=== PATIENT | female | born 1930 | race Caucasian/White ===

== ENCOUNTER 2018-06-26 00:54 | Emergency (ER) | payer OTHER ==
[~2018-06-26] VITALS: Ht 160 cm; Wt 90.7 kg
--- NOTE | ~2018-06-26 | EKG ---
[place] [address] [facility] [place] [address] ELECTROCARDIOGRAM REPORT Name: MARLON BETANCUR [facility] [id number] Admission: 06/26/18 Attend Phys: Discharge: 06/26/18 Date of : 34 Report #: [id number] THIS REPORT FOR: //name// [facility] ED Test Date: 2018-06-26 Test Time: 01:05:49 Pat Name: MARLON BETANCUR Department: Room: Gender: F Winding Machine Operator: EVANGELINA : 1930 Requested By: Zbigniew Alanis Order Number: [id number] MD: Jeremiah Rudolph Measurements Intervals [place] Rate: 76 P: NE: QRS: 37 QRSD: 114 T: 4 QT: 404 QTc: 455 Interpretive Statements Atrial fibrillation Incomplete right bundle branch block Low voltage, precordial leads Compared to ECG 11/23/2014 03:03:51 Incomplete right bundle-branch block now present Electronically Signed On 06-26-2018 10:23:46 CORRECTION OFFICER REFORMATORY by Jeremiah Rudolph [email or web address] <ELECTRONICALLY SIGNED> By: Jeremiah Rudolph MD 06/26/18 1023 0105 0105 Jeremiah Rudolph MD /JUAN
[~2018-06-26 00:54] MED LIST: ALLEGRA60 MG PO; ASPIRIN EC81 M1; ASPIRIN81 M2 PO; CALTRATE 600 +1 EACH PO; CARDIZEM CD240 MG PO; CENTRUM SILVER1 EAC4 PO; COUMADIN 5 MG TA5 M1 PO; FISH OIL 1,0001 EAC5; FISH OIL 1,0001 EAC5 PO; FLEX A MIN; GABAPENTIN 100100 MG PO; GLUCOSAMINE &1 EACH PO; MULTIVITAMINS1 EAC7; PRILOSEC 20 MG20 MG PO; TENORMIN25 MG PO; ULTRAM 50MG TAB50 MG PO; VITAMIN D-32000 UNIT PO; VITAMIN D400 UNI1; ZOFRAN4 MG PO; ZYRTEC 10 MG TA10 M1; [UNRECOGNIZED DRUG - OTHER]
[2018-06-26 01:45] LABS: HEMATOCRIT 39.1 % (37.0-47.0); HEMOGLOBIN 13.2 gm/dL (12.0-15.0); MCH 32.1 pg (26.0-34.0); MCHC 33.8 g/dL (28.0-37.0); MCV 94.9 fL (80.0-100.0); PLATELET COUNT 187 thou/uL (150-400); RBC 4.12 mil/uL (4.20-5.00); RDW 13.8 % (10.5-14.5); WBC 9.5 thou/uL (4.0-11.0)
[2018-06-26 01:46] LABS: ABSOLUTE NEUTROPHILS 4.5 thou/uL (1.4-8.2); ATYPICAL LYMPHS 4 %
[2018-06-26 01:49] LABS: ANION GAP 10 mmol/L (7-16); BUN 18 mg/dL (7-18); CALCIUM 9.1 mg/dL (8.5-10.1); CHLORIDE 102 mmol/L (98-107); CO2 25 mmol/L (21-32); CREATININE 0.9 mg/dL (0.6-1.0); GLUCOSE 111 mg/dL (74-106); POTASSIUM 4.3 mmol/L (3.5-5.1); SODIUM 137 mmol/L (136-145)
[2018-06-26] MEDS ORDERED: COUMADIN 2.5MG2.5 M1 PO (01:50)
[2018-06-26] MEDS ORDERED: COUMADIN 5 MG TA5 M1 PO (01:50)
[2018-06-26] MEDS ORDERED: AMLODIPINE BESYL5 M1 PO (01:52)
[2018-06-26] MEDS ORDERED: LISINOPRIL10 MG PO (01:52)
[2018-06-26 01:57] LABS: INR 2.1; PROTIME 21.5 Seconds (9.3-11.4); TROPONIN-I <0.06 ng/mL (<0.06)
[2018-06-26 02:55] VITALS: BP 146/71
== END 2018-06-26 02:58 | disposition home or self-care (01) ==
LOC: ER 00:54
PROVIDERS: Emergency Medicine
DX: R00.2 Palpitations (principal); Z88.8 Allergy status to other drugs, medicaments and biological substances; I48.91 Unspecified atrial fibrillation; Z98.890 Other specified postprocedural states

== ENCOUNTER 2019-05-20 05:47 | Emergency (ER) | payer OTHER ==
[~2019-05-20] VITALS: Ht 160 cm; Wt 90.7 kg
[~2019-05-20 05:47] MED LIST changes: +AMLODIPINE BESYL5 M1 PO; +COUMADIN 2.5MG2.5 M1 PO; +LISINOPRIL10 MG PO
[2019-05-20] MEDS ORDERED: NASAL SPRAY30 ML (06:16)
[2019-05-20] MEDS ORDERED: MOBIC7.5 MG PO (06:16)
[2019-05-20] MEDS ORDERED: LASIX 40 MG TAB40 M2 PO (06:16)
[2019-05-20 07:14] LABS: ABSOLUTE NEUTROPHILS 7.6 thou/uL (1.4-8.2); BASOPHILS 0.8 % (0.0-2.0); EOSINOPHILS 0.6 % (0.0-3.0); HEMATOCRIT 37.2 % (37.0-47.0); HEMOGLOBIN 12.3 gm/dL (12.0-15.0); MCH 31.5 pg (26.0-34.0); MCV 95.6 fL (80.0-100.0); MONOCYTES 9.4 % (1.0-8.0); PLATELET COUNT 226 thou/uL (150-400); POLYS 71.2 % (36.0-66.0); RBC 3.89 mil/uL (4.20-5.00); RDW 14.3 % (10.5-14.5); WBC 10.6 thou/uL (4.0-11.0)
[2019-05-20 07:18] LABS: CALCIUM 9.8 mg/dL (8.5-10.1); CREATININE 0.9 mg/dL (0.6-1.0); POTASSIUM 4.6 mmol/L (3.5-5.1)
[2019-05-20 07:45] VITALS: BP 151/70
[2019-05-20] MEDS ORDERED: TENORMIN50 MG PO (07:46)
--- NOTE | 2019-05-20 11:33 | EKG ---
[address] [place] [address] ELECTROCARDIOGRAM REPORT Name: MARLON BETANCUR Room #: DEP [facility] [id number] Admission: 05/20/19 Attend Phys: Discharge: 05/20/19 Date of : 32 Report #: [id number] THIS REPORT FOR: //name// [facility] ED Test Date: 2019-05-20 Test Time: 05:52:20 Pat Name: MARLON BETANCUR Department: Room: Gender: F Manager Retention: EVANGELINA : 1930 Requested By: Zbigniew Alanis Order Number: [id number] MD: Mike Hui Measurements Intervals [place] Rate: 64 P: [place]: QRS: 18 QRSD: 107 T: -4 QT: 408 QTc: 421 Interpretive Statements Atrial fibrillation Low voltage, precordial leads RSR' in V1 or V2, right VCD or RVH Compared to ECG 06/26/2018 01:05:49 Right ventricular hypertrophy now present RSR' in V1 or V2 now present Incomplete right bundle-branch block no longer present Electronically Signed On 05-20-2019 11:32:50 CDT by Mike Hui [email or web address] <ELECTRONICALLY SIGNED> By: Mike Hui MD 05/20/19 1132 0552 0552 Mike Hui MD /EPI
== END 2019-05-20 08:03 | disposition home or self-care (01) ==
LOC: ER 05:47
PROVIDERS: Emergency Medicine
DX: R00.2 Palpitations (principal); I48.91 Unspecified atrial fibrillation; Z90.89 Acquired absence of other organs; Z98.890 Other specified postprocedural states; Z88.8 Allergy status to other drugs, medicaments and biological substances

== ENCOUNTER 2019-10-26 00:29 | Emergency (ER) | payer OTHER ==
[~2019-10-26] VITALS: Ht 160 cm; Wt 88.5 kg
[~2019-10-26 00:29] MED LIST changes: +LASIX 40 MG TAB40 M2 PO; +MOBIC7.5 MG PO; +NASAL SPRAY30 ML; +TENORMIN50 MG PO
[2019-10-26] MEDS ORDERED: TENORMIN25 MG PO (00:36)
[2019-10-26] MEDS ORDERED: NORVASC 2.5 MG2.5 M1 PO (00:37)
[2019-10-26] MEDS ORDERED: LISINOPRIL10 MG PO (00:38)
[2019-10-26] MEDS ORDERED: POTASSIUM20 PO (00:39)
[2019-10-26 01:50] LABS: ABSOLUTE NEUTROPHILS 5.7 thou/uL (1.4-8.2); BASOPHILS 0.7 % (0.0-2.0); HEMATOCRIT 36.7 % (37.0-47.0); HEMOGLOBIN 11.9 gm/dL (12.0-15.0); LYMPHOCYTES 21.1 % (24.0-44.0); MCH 30.7 pg (26.0-34.0); MCHC 32.5 g/dL (28.0-37.0); MCV 94.6 fL (80.0-100.0); MONOCYTES 11.4 % (1.0-8.0); PLATELET COUNT 207 thou/uL (150-400); POLYS 65.8 % (36.0-66.0); RBC 3.88 mil/uL (4.20-5.00); RDW 14.6 % (10.5-14.5); WBC 8.6 thou/uL (4.0-11.0)
[2019-10-26 01:57] LABS: ANION GAP 10 mmol/L (7-16); BUN 16 mg/dL (7-18); CALCIUM 8.9 mg/dL (8.5-10.1); CHLORIDE 101 mmol/L (98-107); CO2 26 mmol/L (21-32); GLUCOSE 110 mg/dL (74-106); POTASSIUM 3.8 mmol/L (3.5-5.1); SODIUM 137 mmol/L (136-145)
[2019-10-26 02:07] LABS: ALBUMIN 3.5 g/dL (3.4-5.0); MAGNESIUM 1.7 mg/dL (1.8-2.4); SGOT 24 U/L (15-37); SGPT 20 U/L (30-65); TOTAL BILIRUBIN 0.6 mg/dL (<0.1-1.0); TOTAL PROTEIN 7.2 g/dL (6.4-8.2); TROPONIN-I <0.06 ng/mL (<0.06)
[2019-10-26 02:13] LABS: APTT 35.2 Seconds (24.5-32.8); INR 2.1
[2019-10-26 02:14] VITALS: BP 160/82
--- NOTE | 2019-10-26 09:07 | EKG ---
[facility] [place] [address] ELECTROCARDIOGRAM REPORT Name: MARLON BETANCUR Room #: [facility] [id number] Admission: 10/26/19 Attend Phys: Discharge: 10/26/19 Date of : 32 Report #: [id number] THIS REPORT FOR: cc: Soila Gutierrez MD, Stany A. MD Lundgren,Brayden Bloom MD [facility] ~ THIS REPORT FOR: //name// [facility] ED Test Date: 2019-10-26 Test Time: 00:31:35 Pat Name: MARLON BETANCUR Department: Room: Gender: Group Insurance Special Agent: LAURE : 1930 Requested By: Kade Griggs Order Number: [id number] MD: Brayden Fraire Measurements Intervals [place] Rate: 61 P: 164 [place]: 272 QRS: 3 QRSD: 127 T: -13 QT: 426 QTc: 429 Interpretive Statements Atypical atrial flutter with controlled ventricular response Incomplete right bundle branch block Compared to ECG 05/20/2019 05:52:20 no significant change was found Electronically Signed On 10-26-2019 9:06:43 BEHAVIORAL TECHNICIAN by Brayden Fraire [email or web address] <ELECTRONICALLY SIGNED> By: Brayden Fraire MD, [facility] 10/26/19 0906 003 003 Brayden Fraire MD, [facility] /EPI
== END 2019-10-26 02:15 | disposition home or self-care (01) ==
LOC: ER 00:29
PROVIDERS: Emergency Medicine
DX: I49.3 Ventricular premature depolarization (principal); I48.91 Unspecified atrial fibrillation; I10 Essential (primary) hypertension; Z90.49 Acquired absence of other specified parts of digestive tract; Z88.8 Allergy status to other drugs, medicaments and biological substances

== ENCOUNTER → 2019-10-30 | Outpatient (CLI) | payer OTHER ==
[~2019-10-30] MED LIST changes: +NORVASC 2.5 MG2.5 M1 PO; +POTASSIUM20 PO
== END ==
LOC: SJCVC 12:16
DX: I44.0 Atrioventricular block, first degree (principal); I45.10 Unspecified right bundle-branch block; R94.31 Abnormal electrocardiogram [ECG] [EKG]; I48.0 Paroxysmal atrial fibrillation; I10 Essential (primary) hypertension; E78.5 Hyperlipidemia, unspecified; I65.23 Occlusion and stenosis of bilateral carotid arteries; Z79.01 Long term (current) use of anticoagulants; Z79.899 Other long term (current) drug therapy

== ENCOUNTER → 2020-10-11 | Outpatient (CLI) | payer OTHER | LOC: LAB 14:13 | PROVIDERS: ATTEND Internal Medicine Cardiovascular Disease | DX: Z01.812 Encounter for preprocedural laboratory examination (principal); Z20.822 Contact with and (suspected) exposure to COVID-19 ==

== ENCOUNTER → 2020-10-11 | Outpatient (CLI) | payer OTHER ==
[~2020-10-11] MED LIST changes: +OSTERA TABLET1 EAC1 PO; +XARELTO20 MG PO
== END ==
LOC: SJCVC 12:42
PROVIDERS: ATTEND Internal Medicine
DX: R94.31 Abnormal electrocardiogram [ECG] [EKG] (principal); I44.0 Atrioventricular block, first degree; I49.5 Sick sinus syndrome; I48.0 Paroxysmal atrial fibrillation; I48.3 Typical atrial flutter; E78.00 Pure hypercholesterolemia, unspecified; K21.9 Gastro-esophageal reflux disease without esophagitis; M81.0 Age-related osteoporosis without current pathological fracture; I25.10 Atherosclerotic heart disease of native coronary artery without angina pectoris; Z98.890 Other specified postprocedural states; Z88.8 Allergy status to other drugs, medicaments and biological substances; Z79.01 Long term (current) use of anticoagulants; Z79.899 Other long term (current) drug therapy; Z82.49 Family history of ischemic heart disease and other diseases of the circulatory system

== ENCOUNTER → 2020-10-14 | Outpatient (CLI) | payer OTHER | LOC: SJCVCIMAG 11:20 | PROVIDERS: ATTEND Internal Medicine Cardiovascular Disease | DX: I08.3 Combined rheumatic disorders of mitral, aortic and tricuspid valves (principal); I10 Essential (primary) hypertension; I48.21 Permanent atrial fibrillation; E78.00 Pure hypercholesterolemia, unspecified; E78.5 Hyperlipidemia, unspecified; Z79.01 Long term (current) use of anticoagulants ==

== ENCOUNTER 2020-10-15 06:22 | Observation (INO) | payer OTHER ==
[~2020-10-15] VITALS: Ht 160 cm; Wt 92.5 kg
[~2020-10-15 06:22] MED LIST changes: -OSTERA TABLET1 EAC1 PO; -XARELTO20 MG PO
[2020-10-15 07:27] VITALS: BP 117/56
[2020-10-15 07:37] LABS: ABSOLUTE NEUTROPHILS 4.4 thou/uL (1.4-8.2); BASOPHILS 0.6 % (0.0-2.0); EOSINOPHILS 1.2 % (0.0-3.0); HEMATOCRIT 34.6 % (37.0-47.0); HEMOGLOBIN 11.5 gm/dL (12.0-15.0); LYMPHOCYTES 28.1 % (24.0-44.0); MCHC 33.2 g/dL (28.0-37.0); MCV 96.3 fL (80.0-100.0); MONOCYTES 13.2 % (1.0-8.0); PLATELET COUNT 201 thou/uL (150-400); POLYS 56.9 % (36.0-66.0); RBC 3.59 mil/uL (4.20-5.00); RDW 13.2 % (10.5-14.5); WBC 7.8 thou/uL (4.0-11.0)
[2020-10-15 07:40] LABS: CALCIUM 9.3 mg/dL (8.5-10.1); CREATININE 1.1 mg/dL (0.6-1.0); POTASSIUM 3.9 mmol/L (3.5-5.1)
[2020-10-15] MEDS ORDERED: XARELTO20 MG PO (07:41)
[2020-10-15] MEDS ORDERED: OSTERA TABLET1 EAC1 PO (07:43)
[2020-10-15 07:46] LABS: ALBUMIN 3.8 g/dL (3.4-5.0); TOTAL BILIRUBIN 0.7 mg/dL (0.2-1.0); TOTAL PROTEIN 7.4 g/dL (6.4-8.2)
[2020-10-15 07:50] LABS: PROTIME 11.4 Seconds (9.3-11.4)
--- NOTE | 2020-10-15 11:11 | NUR ---
PT ORIENTED TO ROOM AND UNIT, BED LOW AND LOCKED, SIDE RAILS UPX3, CALL LIGHT IN REACH. LEFT CHEST PPM SITE CDI WITH NO HEMATOMA. TELE APPLIED AND PATIENT IS A-PACED IN THE 60S. WILL CONTINUE TO ASSESS.
[2020-10-15 11:12] VITALS: BP 142/65
[2020-10-15 11:58] VITALS: BP 153/71
--- NOTE | 2020-10-15 12:40 | NUR ---
PT DISCHARGE AT 1220.
[2020-10-15 16:00] VITALS: BP 115/73
--- NOTE | 2020-10-15 16:55 | NUR ---
ASSESSED PT AT BEDSIDE WITH DR. ARCEO AND HE GAVE INSTRUCTION OF WHICH HOME MEDICATIONS TO RESTART.
[2020-10-15 19:56] VITALS: BP 153/69
[2020-10-16 00:30] VITALS: BP 138/58
--- NOTE | 2020-10-16 02:33 | NUR ---
assumed pt care at 1900, pt is awake, alert and orientedx4, apaced on the monitor, denies chest pain or sob, pacemaker site to the left chest c/d/i, assessments as charted, meds given as per oct, vss, no concerns at this time, will continue to monitor and follow poc, plan is dc home in am
[2020-10-16 04:45] VITALS: BP 129/59
[2020-10-16 07:44] VITALS: BP 133/56
--- NOTE | 2020-10-16 08:06 | NUR ---
ASSUMED CARE FOR PT AT 0700. PT SITTING UP IN BED, ASSESSMENT PERFORMED. MEDICATION ADMINISTRATION. VSS. PT PREPARING TO GO TO XRAY.
[2020-10-16 09:16] VITALS: BP 133/56
--- NOTE | 2020-10-16 09:45 | NUR ---
PT D/C HOME WITH SPOUSE, IVS REMOVED. PT AMBULATED TO WHEELCHAIR.
--- NOTE | 2020-10-16 10:34 | CATHLAB ---
[facility] [address] [email or web address] [address] INVASIVE PROCEDURE REPORT Name: MARLON BETANCUR Room #: 205-P [facility] M..#: [id number] Admission: 10/15/20 Attend Phys: Mike Hui MD Discharge: Date of : 32 Report #: [id number] THIS REPORT FOR: cc: Soila Gutierrez MD, Stany A. MD Lammoglia, Francisco J. MD ~ APPROVED REPORT Study performed: 10/15/2020 07:07:25 Patient Status: Out-Patient Room #: Event Personnel: Bo Matias MD Exam: Insertion of Dual Chamber Permanent Pacemaker Indications: Symptomatic bradycardia with sick sinus syndrome and tachybradycardia The patient is a 89 year-old female with a history of Sick sinus syndrome with tachy-bradycardia. Implanted Devices: Medtronic Giulia S MRI SureScan Pacemaker; Model Number: [id number] Serial Number: [id number] Use By: 2022-03-05 Medtronic 5076 45cm Serial Number: [id number] Use By: 2022-07-23 Medtronic 5076 52cm Serial Number: [id number] Use By: 2022-06-28 Procedure The patient underwent informed consent. We discussed the details of the procedure including the risks, which include, but not limited to bleeding, infection, vascular damage, cardiac perforation, and pneumothorax. She understood these risks and was willing to proceed. As such, she was brought to the EP/Cardiac Catheterization laboratory in a fasting and sedated state and prepped and draped in a The patient underwent general anesthesia, with no anesthesia related complications. The patient was brought to the EP/Cardiac Catheterization laboratory and the left chest and shoulder were prepped and draped in a sterile manner. During this case, Fluoroscopy and no contrast were used for imaging. The left subclavian region was infiltrated with 2% Lidocaine subcutaneous anesthesia. A transverse incision was made in the left upper chest cavity. [address] [address] INVASIVE PROCEDURE REPORT Name: PIPEMARLON BETSY Room #: 205-P [facility] IN ..#: [id number] Admission: 10/15/20 Attend Phys: Mike Hui Discharge: Date of : 32 Report #: [id number] The subcutaneous pocket was formed via blunt dissection. Percutaneous venous access was achieved and an introducer sheath was inserted into the left Subclavian vein. Sheaths were positions using the modified Seldinger technique Through the introducer sheaths the atrial and ventricular lead wires were positioned in the right atrial appendage and right ventricular apex respectively. Capturing and sensing thresholds were verified. Electrode Parameters Values are noted in the chart Dual Chamber The atrial and ventricular leads were then secured using 2-0 nonabsorbable sutures. The subcutaneous pocket was irrigated with ancef antibiotic solution.The atrial and ventricular leads were attached to the appropriate receptacles on the pulse generator and set screws firmly tightened to insure adequate contact and stability. The lead and pulse generator were placed into the subcutaneous pocket. Sharp and sponge counts were confirmed to be correct. At this time the pocket was closed subcutaneously with a 2-0 running locking suture in 2 layers and the skin was closed with a 3-0 absorbable in a subcuticular stitch. The operative site was dressed in sterile fashion with Dermabond Steri-Strips OpSite and the patient was transferred to the floor in stable condition. Complications The patient tolerated the procedure well and there were no complications associated with the procedure. Findings Specimens Removed: N/A Conclusion 1. Successful implantation of a dual-chamber Medtronic pacemaker Recommendations 1. Routine postimplantation protocol <ELECTRONICALLY SIGNED> By: Bo Matias MD 10/16/20 1034 1034 1034 Bo Matias MD /INF
== END 2020-10-16 11:07 | disposition home or self-care (01) ==
LOC: CATH 06:22 → 2N 10:57 → CATH 11:22 → 2N 10-16 11:07
PROVIDERS: ADMIT Internal Medicine Cardiovascular Disease; ATTEND Internal Medicine Cardiovascular Disease
DX: I49.5 Sick sinus syndrome (principal); I48.0 Paroxysmal atrial fibrillation; I44.0 Atrioventricular block, first degree; I10 Essential (primary) hypertension; Z79.01 Long term (current) use of anticoagulants; Z79.899 Other long term (current) drug therapy
CPT/HCPCS: 62110; 62900; 70005

== ENCOUNTER → 2021-01-07 | Outpatient (CLI) | payer OTHER ==
[~2021-01-07] MED LIST changes: +ATENOLOL 50MG T50 MG PO; +CARDIZEM CD 18180 M3 PO; +OSTERA TABLET1 EAC1 PO; +XARELTO20 MG PO
== END ==
LOC: SJCVC 11:20
PROVIDERS: ATTEND Internal Medicine
DX: R94.31 Abnormal electrocardiogram [ECG] [EKG] (principal); I48.0 Paroxysmal atrial fibrillation; I10 Essential (primary) hypertension; E78.5 Hyperlipidemia, unspecified; Z95.0 Presence of cardiac pacemaker; Z79.01 Long term (current) use of anticoagulants; I65.29 Occlusion and stenosis of unspecified carotid artery; I25.10 Atherosclerotic heart disease of native coronary artery without angina pectoris; K21.9 Gastro-esophageal reflux disease without esophagitis; E78.00 Pure hypercholesterolemia, unspecified; M81.0 Age-related osteoporosis without current pathological fracture; Z82.49 Family history of ischemic heart disease and other diseases of the circulatory system; Z79.899 Other long term (current) drug therapy

== ENCOUNTER 2021-01-10 23:10 | Inpatient (IN) | payer OTHER ==
[~2021-01-10] VITALS: Ht 160 cm; Wt 90.7 kg
[~2021-01-10 23:10] MED LIST changes: -ATENOLOL 50MG T50 MG PO; -CARDIZEM CD 18180 M3 PO
[2021-01-10 23:21] VITALS: BP 125/84
[2021-01-10 23:44] LABS: ABSOLUTE NEUTROPHILS 6.2 thou/uL (1.4-8.2); BASOPHILS 0.5 % (0.0-2.0); EOSINOPHILS 1.2 % (0.0-3.0); HEMATOCRIT 34.3 % (37.0-47.0); HEMOGLOBIN 11.7 gm/dL (12.0-15.0); MCHC 34.2 g/dL (28.0-37.0); MCV 93.5 fL (80.0-100.0); MONOCYTES 13.3 % (1.0-8.0); PLATELET COUNT 232 thou/uL (150-400); RBC 3.67 mil/uL (4.20-5.00); WBC 9.6 thou/uL (4.0-11.0)
[2021-01-10 23:56] LABS: ANION GAP 14 mmol/L (7-16); BUN 14 mg/dL (7-18); CALCIUM 8.7 mg/dL (8.5-10.1); CHLORIDE 105 mmol/L (98-107); CO2 25 mmol/L (21-32); CREATININE 0.9 mg/dL (0.6-1.0); GLUCOSE 117 mg/dL (74-106); POTASSIUM 3.6 mmol/L (3.5-5.1); SODIUM 144 mmol/L (136-145)
[2021-01-11 00:02] LABS: ALBUMIN 3.4 g/dL (3.4-5.0); DIRECT BILIRUBIN 0.1 mg/dL (<0.1-0.2); MAGNESIUM 1.7 mg/dL (1.8-2.4); SGOT 18 U/L (15-37); SGPT 19 U/L (14-59); TOTAL BILIRUBIN 0.4 mg/dL (0.2-1.0); TOTAL PROTEIN 7.4 g/dL (6.4-8.2); TROPONIN-I <0.06 ng/mL (<0.06)
[2021-01-11 06:17] VITALS: BP 150/61
[2021-01-11 07:09] VITALS: BP 130/82
[2021-01-11 07:38] VITALS: BP 144/61
--- NOTE | 2021-01-11 08:56 | NUR ---
ORDERS RECEIVED FOR EVAL AND TREAT. SPOKE TO Pt WHO STATES SHE HAS BEEN UP AND HAVING NO DIFFICULTY WITH HER MOBILITY AND HOPING TO DISCHARGE HOME TODAY. Pt IS DECLINING A FORMAL P.T. EVAL. SPOKE WITH NURSING WHO CONCURS THAT Pt MOVING AT A LEVEL WHERE SHE CAN RETURN HOME SAFELY
[2021-01-11] MEDS ORDERED: ATENOLOL 50MG T50 MG PO ×2 (11:13)
[2021-01-11] MEDS ORDERED: CARDIZEM CD 18180 M3 PO ×2 (11:13)
[2021-01-11 11:16] VITALS: BP 124/58
[2021-01-11 12:18] VITALS: BP 124/58
--- NOTE | 2021-01-11 12:39 | NUR ---
RECEIVED PT FROM THE ER. ADMISSION COMPLETED. PT IS AXOX4, PLEASANT. VSS, AFEBRILE, APACED ON MONITOR. PT ARRIVED WITH THU GARRETT. CARDIOLOGY CONSULTED. DR KENNEDY CONSULTED. PT TO D/C HOME WITH CHANGES IN RX FOR HR/BP. DISCHARGE EDUCATION COMPLETED. PT AND PT COMMUNICATED UNDERSTANDING. PT D/C HOME WITH SPOUSE IN PERSONAL VEHICLE. NO CONCERNS AT THIS TIME.
--- NOTE | 2021-01-11 12:43 | NUR ---
OT DISCUSSED ROLE OF OT WITH PT., PT. DECLINES FORMAL OT EVALUATION SHE STATES SHE IS AT HER BASELINE LEVEL OF FUNCTION. PT. IS COGNITIVELY ABLE TO DECIDE THIS. PLEASE RE-CONSULT OT IF INDICATED. PT. STATES SHE IS TOLD SHE WILL D/C HOME TODAY.
--- NOTE | 2021-01-12 15:06 | EKG ---
[place] [address] [facility] [place] [address] ELECTROCARDIOGRAM REPORT Name: MARLON BETANCUR Room #: 204-P [facility] IN ..#: [id number] Admission: 01/11/21 Attend Phys: Jackelyn Garza MD Discharge: 01/11/21 Date of : 32 Report #: [id number] [facility] ED Test Date: 2021-01-10 Test Time: 23:16:18 Pat Name: MARLON BETANCUR Department: Room: [facility] Gender: F Hyperion Analyst: [email or web address] : 1930 Requested By: Varsha Kwon Order Number: [id number] MD: Brayden Fraire Measurements Intervals [place] Rate: 124 P: 0 [place]: 230 QRS: 23 QRSD: 128 T: -36 QT: 364 QTc: 523 Interpretive Statements Ventricular-paced rhythm No further analysis attempted due to paced rhythm Compared to ECG 10/26/2019 00:31:35 Ventricular pacing is now present Electronically Signed On 01-12-2021 15:06:24 CDT by Brayden Fraire [email or web address] <ELECTRONICALLY SIGNED> By: Brayden Fraire MD, [facility] 01/12/21 1506 2316 2316 Brayden Fraire MD, [facility] /EPI
== END 2021-01-11 12:45 | disposition home or self-care (01) | DRG 310 ==
LOC: ER 23:10 → EROBS 01-11 00:39 → 2N 01-11 00:39
PROVIDERS: Emergency Medicine; ADMIT Internal Medicine; ATTEND Internal Medicine
DX: I48.0 Paroxysmal atrial fibrillation (principal); I49.5 Sick sinus syndrome; I10 Essential (primary) hypertension; I25.10 Atherosclerotic heart disease of native coronary artery without angina pectoris; E83.42 Hypomagnesemia; K21.9 Gastro-esophageal reflux disease without esophagitis; G62.9 Polyneuropathy, unspecified; E78.5 Hyperlipidemia, unspecified; R60.0 Localized edema; G89.29 Other chronic pain; M54.9 Dorsalgia, unspecified; Z95.0 Presence of cardiac pacemaker; Z88.8 Allergy status to other drugs, medicaments and biological substances
CPT/HCPCS: 10081

== ENCOUNTER 2021-02-03 00:36 | Emergency (ER) | payer OTHER ==
[~2021-02-03] VITALS: Ht 160 cm; Wt 90.7 kg
[~2021-02-03 00:36] MED LIST changes: +ATENOLOL 50MG T50 MG PO; +CARDIZEM CD 18180 M3 PO
[2021-02-03 02:10] LABS: ABSOLUTE NEUTROPHILS 6.3 thou/uL (1.4-8.2); BASOPHILS 0.5 % (0.0-2.0); EOSINOPHILS 1.2 % (0.0-3.0); HEMATOCRIT 33.8 % (37.0-47.0); HEMOGLOBIN 11.3 gm/dL (12.0-15.0); LYMPHOCYTES 22.3 % (24.0-44.0); MCH 31.5 pg (26.0-34.0); MCHC 33.4 g/dL (28.0-37.0); MCV 94.2 fL (80.0-100.0); MONOCYTES 12.5 % (1.0-8.0); PLATELET COUNT 202 thou/uL (150-400); POLYS 63.5 % (36.0-66.0); RBC 3.59 mil/uL (4.20-5.00); RDW 14.2 % (10.5-14.5); WBC 9.9 thou/uL (4.0-11.0)
[2021-02-03 02:14] LABS: ANION GAP 11 mmol/L (7-16); BUN 20 mg/dL (7-18); CALCIUM 8.9 mg/dL (8.5-10.1); CHLORIDE 103 mmol/L (98-107); CO2 24 mmol/L (21-32); GLUCOSE 126 mg/dL (74-106); POTASSIUM 4.2 mmol/L (3.5-5.1); SODIUM 138 mmol/L (136-145)
[2021-02-03 02:24] LABS: ALBUMIN 3.5 g/dL (3.4-5.0); MAGNESIUM 1.7 mg/dL (1.8-2.4); SGOT 19 U/L (15-37); SGPT 20 U/L (30-65); TOTAL BILIRUBIN 0.4 mg/dL (0.2-1.0); TOTAL PROTEIN 7.3 g/dL (6.4-8.2); TROPONIN-I <0.06 ng/mL (<0.06)
[2021-02-03 03:00] VITALS: BP 143/73
--- NOTE | 2021-02-03 07:24 | EKG ---
[place] [address] [facility] [address] ELECTROCARDIOGRAM REPORT Name: MARLON BETANCUR [facility] [id number] Admission: 02/03/21 Attend Phys: Discharge: 02/03/21 Date of : 32 Report #: [id number] [facility] ED Test Date: 2021-02-03 Test Time: 00:57:35 Pat Name: MARLON BETANCUR Department: Room: Gender: F Medical Coding Manager: [email or web address] : 1930 Requested By: Ankit Spence Order Number: [id number] MD: Jeremias Matson Measurements Intervals [place] Rate: 66 P: 253 [place]: 218 QRS: 65 QRSD: 133 T: -14 QT: 421 QTc: 442 Interpretive Statements Atrial-sensed ventricular-paced complexes No further analysis attempted due to paced rhythm Compared to ECG 01/10/2021 23:16:18 No significant changes Electronically Signed On 02-03-2021 7:24:12 CDT by Jeremias Matson [email or web address] <ELECTRONICALLY SIGNED> By: Jeremias Matson MD, [facility] 02/03/21 0724 D: 06/56 Jeremias Matson MD, FACC /EPI
== END 2021-02-03 03:00 | disposition home or self-care (01) ==
LOC: ER 00:36
PROVIDERS: Emergency Medicine
DX: R00.2 Palpitations (principal); E83.42 Hypomagnesemia; I48.91 Unspecified atrial fibrillation; I10 Essential (primary) hypertension; Z88.8 Allergy status to other drugs, medicaments and biological substances

== ENCOUNTER → 2021-02-10 | Outpatient (CLI) | payer OTHER | LOC: SJCVC 13:07 | PROVIDERS: ATTEND Internal Medicine Cardiovascular Disease | DX: R94.31 Abnormal electrocardiogram [ECG] [EKG] (principal); I45.4 Nonspecific intraventricular block; I48.0 Paroxysmal atrial fibrillation; I48.3 Typical atrial flutter; I49.5 Sick sinus syndrome; I47.1 Supraventricular tachycardia; I47.2 Ventricular tachycardia; I10 Essential (primary) hypertension; I25.10 Atherosclerotic heart disease of native coronary artery without angina pectoris; K21.9 Gastro-esophageal reflux disease without esophagitis; E78.00 Pure hypercholesterolemia, unspecified; M81.0 Age-related osteoporosis without current pathological fracture; Z82.49 Family history of ischemic heart disease and other diseases of the circulatory system; Z79.899 Other long term (current) drug therapy; Z88.8 Allergy status to other drugs, medicaments and biological substances ==

== ENCOUNTER → 2021-02-19 | Outpatient (CLI) | payer OTHER | LOC: SJCVCIMAG 07:31 | PROVIDERS: ATTEND Internal Medicine Cardiovascular Disease | DX: I49.3 Ventricular premature depolarization (principal); I48.0 Paroxysmal atrial fibrillation; R00.0 Tachycardia, unspecified; I10 Essential (primary) hypertension; R06.00 Dyspnea, unspecified; E78.5 Hyperlipidemia, unspecified; I49.9 Cardiac arrhythmia, unspecified; R53.83 Other fatigue; K21.9 Gastro-esophageal reflux disease without esophagitis; E78.00 Pure hypercholesterolemia, unspecified; M81.0 Age-related osteoporosis without current pathological fracture; R53.1 Weakness; I44.0 Atrioventricular block, first degree; I65.23 Occlusion and stenosis of bilateral carotid arteries; I25.10 Atherosclerotic heart disease of native coronary artery without angina pectoris; Z95.0 Presence of cardiac pacemaker; Z79.01 Long term (current) use of anticoagulants; Z79.899 Other long term (current) drug therapy; Z88.1 Allergy status to other antibiotic agents ==

== ENCOUNTER → 2021-05-27 | Outpatient (CLI) | payer OTHER | LOC: SJCVC 09:26 | PROVIDERS: ATTEND Internal Medicine | DX: R94.31 Abnormal electrocardiogram [ECG] [EKG] (principal); I48.0 Paroxysmal atrial fibrillation; I10 Essential (primary) hypertension; E78.5 Hyperlipidemia, unspecified; I49.9 Cardiac arrhythmia, unspecified; Z79.01 Long term (current) use of anticoagulants; Z95.0 Presence of cardiac pacemaker; Z79.899 Other long term (current) drug therapy ==